=== PATIENT | female | born 1965 | race Two or more races ===

== ENCOUNTER 2022-09-04 02:50 | Emergency (ER) | payer BC, OTHER ==
[~2022-09-04] VITALS: Ht 162.6 cm; Wt 102.4 kg
[2022-09-04 02:54] VITALS: BP 178/92
[2022-09-04] MEDS ORDERED: CEPH-585 PO (03:19)
== END 2022-09-04 03:38 | disposition home or self-care (01) ==
LOC: ER 02:51
DX: M79.675 Pain in left toe(s) (principal)
CPT/HCPCS: 99283

== ENCOUNTER 2022-11-22 22:54 | Emergency (ER) | payer BC, OTHER ==
[~2022-11-22] VITALS: Ht 165.1 cm; Wt 90.9 kg
[~2022-11-22 22:54] MED LIST: CEPH-585 PO
[2022-11-22 22:55] VITALS: BP 162/75
--- NOTE | 2022-11-22 22:59 | NUR ---
ICE PACK GIVEN TO THE PT.
[2022-11-22] MEDS ORDERED: naproxen 500mg tablet PO ONE (23:05)
== END 2022-11-22 23:23 | disposition home or self-care (01) ==
LOC: ER 22:54
DX: S00.03XA Contusion of scalp, initial encounter (principal); W19.XXXA Unspecified fall, initial encounter; Y93.89 Activity, other specified; Y92.89 Other specified places as the place of occurrence of the external cause; Y99.8 Other external cause status
CPT/HCPCS: 99284

== ENCOUNTER 2023-10-30 05:42 | Emergency (ER) | payer BC ==
[~2023-10-30] VITALS: Ht 162.6 cm; Wt 90.9 kg
[2023-10-30 07:04] LABS: STREP A SCREEN POSITIVE (Neg)
[2023-10-30] MEDS: dexamethasone sod phosphate 10mg/ml inj IM STA (07:09)
[2023-10-30] MEDS: diphenhydrAMINE 25 MG/10 ML UD oral solution PO ONE (07:12)
[2023-10-30] MEDS ORDERED: AZIT-164 PO (07:18)
[2023-10-30] MEDS: azithromycin 250mg tablet PO ONE (07:35)
[2023-10-30 07:44] VITALS: BP 139/96; PULSE 102; RESP 14; TEMP 98.8; O2SAT 97
== END 2023-10-30 07:51 | disposition home or self-care (01) ==
LOC: ER 05:42
DX: J02.0 Streptococcal pharyngitis (principal); R50.9 Fever, unspecified; Z79.2 Long term (current) use of antibiotics
CPT/HCPCS: 87880; 96372; 99283; J1100; Q0163

== ENCOUNTER 2024-10-29 04:24 | Emergency (ER) | payer BC ==
[2024-10-29] VITALS (8 sets, daily range): BP systolic 115; BP diastolic 69; PULSE 75–104; RESP 16–22; TEMP 96.8; O2SAT 93–95
[~2024-10-29] VITALS: Ht 147.3 cm; Wt 87.8 kg
[2024-10-29] MEDS: ipratropium/albuterol 3ml nebule NEB ONE (04:45)
[2024-10-29] MEDS: dexamethasone sod phosphate 10mg/ml inj IV STA (04:52)
[2024-10-29 05:12] LABS: BASOPHILS % (AUTO) 0.6 % (0-1); EOSINOPHILS # (AUTO) 1.1 X10'3 (0-0.9); EOSINOPHILS % (AUTO) 13.9 % (0-6); HEMATOCRIT 44.3 % (35.0-45.0); HEMOGLOBIN 14.7 g/dl (12.0-16.0); LYMPHOCYTES # (AUTO) 2.3 X10'3 (1.1-4.8); LYMPHOCYTES % (AUTO) 29.3 % (21-51); MEAN CORPUSCULAR HEMOGLOBIN 29.7 PG (27.0-31.0); MEAN CORPUSCULAR HGB CONC 33.1 g/dL (33.0-36.5); MEAN CORPUSCULAR VOLUME 89.8 FL (78-98); MEAN PLATELET VOLUME 8.3 FL (7.4-10.4); MONOCYTES # (AUTO) 0.7 X10'3 (0-0.9); MONOCYTES % (AUTO) 8.9 % (2-12); NEUTROPHILS # (AUTO) 3.7 X10'3 (1.8-7.7); NEUTROPHILS % (AUTO) 47.3 % (42-75); PLATELET COUNT 217 X10'3 (140-440); RED BLOOD COUNT 4.93 X10'6 (4.20-5.60); RED CELL DISTRIBUTION WIDTH 14.1 % (11.5-14.5); WHITE BLOOD COUNT 7.8 X10'3 (4.5-11.0)
[2024-10-29 05:36] LABS: ALBUMIN 3.4 G/DL (3.4-5.0); ANION GAP 7 (8-16); BLOOD UREA NITROGEN 9 MG/DL (7-18); BUN/CREATININE RATIO 12.9 (10.0-20.0); CALCIUM 9.2 MG/DL (8.5-10.1); CHLORIDE 104 MMOL/L (99-107); GLUCOSE 110 MG/DL (70-104); POTASSIUM 3.9 MMOL/L (3.5-5.1); PRO BRAIN NATRIURETIC PEPTIDE 44 PG/ML (0-125); SODIUM 140 MMOL/L (135-145); TOTAL CARBON DIOXIDE 29.5 MMOL/L (24-32); eCRCL 57 ML/MIN; eGFR 86 ML/MIN
[2024-10-29] MEDS ORDERED: ALBU18HF2 INH (05:37)
[2024-10-29] MEDS ORDERED: PRED20TA PO (05:37)
[2024-10-29] MEDS: albuterol 2.5 MG/3 ML nebule NEB ONE (06:01)
[2024-10-29] MEDS: glycopyrrolate 0.2mg/ml inj IV ONE (06:39)
== END 2024-10-29 07:11 | disposition home or self-care (01) ==
LOC: ER 04:25
DX: J40 Bronchitis, not specified as acute or chronic (principal); Z79.52 Long term (current) use of systemic steroids; Z20.822 Contact with and (suspected) exposure to COVID-19
CPT/HCPCS: 36415; 71046; 80048; 83605; 83880; 84145; 85025; 87040; 87502; 87503; 87811; 94640; 96374; 96375; 99284; J1100; J3490